=== PATIENT | male | born 1975 | race Caucasian/White ===

== ENCOUNTER → 2017-12-27 | Outpatient (CLI) | payer BC | LOC: GMAJ 13:33 | PROVIDERS: ATTEND Family Medicine | DX: R94.5 Abnormal results of liver function studies (principal) ==

== ENCOUNTER 2018-03-01 07:15 | Emergency (ER) | payer BC ==
--- NOTE | 2018-03-01 07:31 | ED.PDOC ---
History of Present Illness - General Chief Complaint: Abdominal Pain Stated Complaint: left sided abdominal pain Time Seen by Provider: 03/01/18 07:26 Information Source: patient Exam Limitations: no limitations - History of Present Illness Initial Comments: Alli Subramanian 43 y/o male came to ER with dull left sided constant abdominal pain since last night after eater bowl of stew.Had diverticulitis 10 years ago end since then has some flare ups every 2-3 years .Had colonoscopy done 2 years ago.No diarrhea,no constipation no N/V,no hematuria no fever,regular bm no weight loss,no tarry stool.Denies chronic medical problem. Abdominal Pain Onset Location: LLQ Pain Radiation: no radiation Quality: moderate Timing/Duration: 7-24 hours Improving Factors: nothing, eating Associated Symptoms: denies symptoms Review of Systems - Review of Systems Constitutional: States: no symptoms reported EENTM: States: no symptoms reported Respiratory: States: no symptoms reported Cardiology: States: no symptoms reported Gastrointestinal/Abdominal: States: see HPI, abdominal pain Genitourinary: States: no symptoms reported Musculoskeletal: States: no symptoms reported Skin: States: no symptoms reported Neurological: States: no symptoms reported All other Systems: Reviewed and Negative, No Change from Baseline Past Medical History (General) - Patient Medical History Hx Seizures: No Hx Stroke: No Hx Dementia: No Hx Asthma: No Hx of COPD: No Hx Cardiac Disorders: No Hx Congestive Heart Failure: No Hx Pacemaker: No Hx Hypertension: No Hx Thyroid Disease: No Hx Diabetes: No Hx Gastroesophageal Reflux: No Hx Renal Disease: No Hx Cancer: No Hx of HIV: No Hx Hepatitis C: No Hx MRSA: No Hx Other PMH: Yes - diverticulityis Surgical History: other - colonoscopy - Vaccination History Hx Influenza Vaccination: No - Social History Hx Tobacco Use: No Hx Alcohol Use: No Hx Substance Use: No Hx Physical Abuse: No Hx Emotional Abuse: No Family Medical History - Family History Mother Family History: No Known Physical Exam - Physical Exam General Appearance: Alert, Comfortable, No apparent distress Eyes, Ears, Nose, Throat Exam: normal ENT inspection Neck: supple, normal inspection Respiratory: chest non-tender, lungs clear, normal breath sounds Cardiovascular/Chest: normal peripheral pulses, regular rate, rhythm, no murmur Peripheral Pulses: No deficit Gastrointestinal/Abdominal: soft, tenderness - left side abdomen no peritoneal signs Back Exam: no CVA tenderness, no vertebral tenderness Extremity: no pedal edema, no calf tenderness Neurologic: alert, normal mood/affect Progress - Progress Progress: 03/01/18 07:33 Vital Signs - 24 hr 03/01/18 07:22 Temperature 99.1 F Pulse Rate [ 81 left brachial] Respiratory 20 Rate Blood Pressure 124/78 [left brachial] O2 Sat by Pulse 97 Oximetry - Results/Orders Results/Orders: 03/01/18 07:34 IV Care:Saline Lock per Protoc QSHIFT 03/01/18 07:36 Hold Metformin x 48Hrs [id number] 03/01/18 08:29 URINALYSIS Stat 03/01/18 08:40 levoFLOXacin 500MG IV [Levaquin 500MG IV] 500 mg Premix Bag 1 bag IVPB ONCE metroNIDAZOLE IV PREMIX 500MG [Flagyl IV Premix 500 MG/100 ML] 500 mg Premix Bag 1 bag IVPB ONCE Laboratory Results - last 24 hr 03/01/18 03/01/18 07:44 08:03 WBC 11.4 H RBC 5.33 Hgb 16.1 Hct 47.9 MCV 90.0 MCH 30.2 MCHC 33.6 RDW 13.7 Plt Count 268 MPV 7.5 Absolute Neuts (auto) 8.80 H Absolute Lymphs (auto) 1.50 Absolute Monos (auto) 0.90 H Absolute Eos (auto) 0.10 Absolute Basos (auto) 0.10 Neutrophils % 77.5 Lymphocytes % 13.3 L Monocytes % 7.6 Eosinophils % 0.9 L Basophils % 0.7 PT 10.4 INR 1.04 PTT (SP) 32.1 H Sodium 136 Potassium 3.9 Chloride 105 Carbon Dioxide 23 Anion Gap 11.9 L BUN 18 Creatinine 1.21 BUN/Creatinine Ratio 14.9 Random Glucose 101 Serum Osmolality 274.0 L Lactic Acid 0.8 Calcium 9.0 Magnesium 2.2 Total Bilirubin 1.1 H Direct Bilirubin < 0.1 Indirect Bilirubin 1.0 H AST 21 ALT 29 Alkaline Phosphatase 64 Creatine Kinase 88 CK-MB (CK-2) 1.8 CK-MB (CK-2) % Not Reportable Troponin I < 0.02 Serum Total Protein 7.3 Albumin 4.1 - EKG/XRAY/CT CT Ordered: Yes - abd/p-acute diverticulitis;no rupture/perforation Departure - Departure Clinical Impression: Diverticulitis large intestine w/o perforation or abscess w/o bleeding Abdominal pain Qualifiers: Abdominal location: left lower quadrant Qualified Code(s): R10.32 - Left lower quadrant pain Time of Disposition: 09:34 Disposition: Discharge to Home or Self Care Condition: Fair Departure Forms: ED Discharge - Pt. Copy, Patient Portal Self Enrollment Instructions: Diverticulitis (DC), Diverticulitis Diet: other - clear liquid diet for today then soft diet tomorrow am for 5 days;NO GREASY SPICY FOODS Prescriptions: Acetaminophen W/ Codeine [Tylenol W/ CODEINE #3] 1 ea PO Q6HRS PRN #20 PRN Reason: Pain levoFLOXacin [Levaquin] 500 mg PO DAILY 7 Days #7 tab Metronidazole 500 mg PO TID 7 Days #21 tab Home Medications: Ambulatory Orders Acetaminophen W/ Codeine [Tylenol W/ CODEINE #3] 1 ea PO Q6HRS PRN #20 03/01/18 Metronidazole 500 mg PO TID 7 Days #21 tab 03/01/18 levoFLOXacin [Levaquin] 500 mg PO DAILY 7 Days #7 tab 03/01/18 Additional Instructions: Return to Emergency room if symptoms worsens-more abdominal pain;nausea/vomiting,fever;follow up with Dr. Giang-surgeon 03 March 2017
[2018-03-01] MEDS ORDERED: PROCHLORPERAZINE INJ 10 MG/2 ML VIAL IV ONE (07:34)
[2018-03-01] MEDS ORDERED: LACTATED RINGERS 1,000 ML IVS ONE (07:34)
[2018-03-01] MEDS ORDERED: MORPHINE SULFATE INJ 10 MG/ML VIAL IV ONE ×2 (07:34→10:05)
--- NOTE | 2018-03-01 08:32 | CT ---
EXAM DESCRIPTION: Abdomen/Pelvis w/Contrast CLINICAL HISTORY: 43 years Male left sided abdominal pain COMPARISON: None TECHNIQUE: Contiguous axial images were obtained through the abdomen and pelvis following the administration of intravenous contrast and/or oral contrast. Coronal and sagittal reconstructions are also obtained and reviewed. This exam was performed according to our departmental dose-optimization program, which includes automated exposure control, adjustment of the mA and/or kV according to patient size and/or use of iterative reconstruction technique. FINDINGS: LUNG BASES: HEART: Unremarkable. There is no cardiomegaly. LUNGS: The lungs are clear PLEURAL SPACES: There is no evidence of pleural fluid or pneumothorax . ABDOMEN: LIVER: Normal in size and configuration. There are no significant focal defects with exception of a tiny hypodensities in the right lobe of the liver which are technically too small to characterize. There is no evidence of biliary ductal dilatation. GALLBLADDER AND BILE DUCTS: Unremarkable. There is no evidence of calculi or pericholecystic inflammatory changes. There is no biliary ductal dilatation. PANCREAS: There is fatty infiltration of the pancreas.. No ductal dilatation, inflammatory changes or mass. SPLEEN: Unremarkable. No splenomegaly or focal defects. ADRENALS: Unremarkable. No mass or calcification. KIDNEYS AND URETERS: There are no acute findings. There is no evidence of solid renal mass. There are no nonobstructive intrarenal calculi. There is no evidence of hydronephrosis. There is a tiny hypodensity in the which is technically too small to characterize. There is a hypodensity in the which is technically too small to characterize. DISTAL ESOPHAGUS, STOMACH AND BOWEL: The distal esophagus is unremarkable. The stomach is unremarkable. The small bowel is unremarkable. There is mural thickening of the descending colon. This is associated with scattered diverticula, infiltration of the pericolonic fat and thickening of adjacent fascial planes consistent with acute diverticulitis. rectum is unremarkable. No evidence of intestinal obstruction. PELVIS: APPENDIX: Present and appears normal with no findings to suggest acute appendicitis. BLADDER: Unremarkable, allowing for the degree of distention. There is no evidence of cystolithiasis or bladder mass. REPRODUCTIVE: The prostate and seminal vesicles are unremarkable. ABDOMEN and PELVIS: INTRAPERITONEAL SPACE: Unremarkable. No free air or free fluid. No significant focal fluid collection. BONES AND JOINTS: There are no discernible acute fractures or areas of osseous destruction or blastic change. There are mild degenerative changes in the spine SOFT TISSUES: There is a small fat-containing umbilical hernia. VASCULATURE: Unremarkable. No abdominal aortic aneurysm. LYMPH NODES: Unremarkable. There is no evidence of mesenteric, retroperitoneal, pelvic or inguinal adenopathy. IMPRESSION: Impression new. Suspect acute diverticulitis in the descending colon without evidence of contained perforation or peridiverticular abscess. As an underlying malignancy cannot be entirely excluded, a follow-up examination after a course of treatment is recommended if clinically warranted. Remainder of findings as described above. Electronically signed by: Sakshi Montes De Oca MD 03/01/2018 8:31 AM [facility]
[2018-03-01] MEDS ORDERED: metroNIDAZOLE IV PREMIX 500MG 500 MG in PREMIX BAG 1 BAG IVPB ONE (08:40)
[2018-03-01] MEDS ORDERED: levoFLOXacin 500MG IV 500 MG in PREMIX BAG 1 BAG IVPB ONE (08:40)
[2018-03-01] MEDS ORDERED: levoFLOXacin 500MG IV 100 ML IVPB ONE (08:42)
[2018-03-01 08:51] VITALS: TEMP 98.1
[2018-03-01] MEDS ORDERED: metroNIDAZOLE IV PREMIX 500MG 100 ML IVPB ONE (09:44)
[2018-03-01 11:03] VITALS: BP 111/73; O2SAT 95
== END 2018-03-01 10:50 | disposition home or self-care (01) ==
LOC: ER 07:15
DX: K57.32 Diverticulitis of large intestine without perforation or abscess without bleeding (principal)
CPT/HCPCS: 36415; 74177; 80048; 80076; 81001; 82550; 82553; 83605; 84484; 85025; 85610; 85730; J0780; J1956; J2270; J3490; J7120